=== PATIENT | female | born 2000 | race Caucasian/White ===

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

== ENCOUNTER 2020-09-14 15:59 | Emergency (ER) | payer SELFPAY ==
[2018-07-18 19:44] VITALS: BMI 42.2
[2020-09-14 15:59] VITALS: BP 154/88; PULSE 89; RESP 17; TEMP 36.9; O2SAT 96; BMI 44.2
[2020-09-14 16:02] VITALS: BP 154/88
[2020-09-14 17:08] LABS: Bacteria 0 SEEN /hpf (None Seen); Mucous, Urine 0 SEEN /hpf (<or=2+); Squamous Epithelial Cells - UA 0 SEEN /hpf (5-10); White Blood Cells 0 SEEN /hpf (0-5)
[2020-09-14 17:19] LABS: Color, Urine Yellow (Yellow); Glucose, Dipstick Normal (Normal); Ketone-Dipstick Negative (Negative); Leukocyte Esterase-Dipstick Negative /ul (Negative); Nitrite-Dipstick Negative (Negative); Occult Blood-Urine 250 /ul (Negative); Protein-Dipstick Negative (Negative); Urine Bilirubin Dipstick Negative (Negative); Urine Clarity Clear (Clear); Urine Urobilinogen 1 mg/dl (Normal)
[2020-09-14 17:32] LABS: Red Blood Cells-Urine 5-10 SEEN /hpf (0-5)
[2020-09-14 17:33] LABS: Internal QC Validated? YES +Cl - CLEAR BKGD; Pregnancy, Urine Negative Negative
--- NOTE | 2020-09-14 17:58 | ED.VIS.GEN ---
History of Present Illness Chief Complaint: Vag Bleeding Informant: Patient Onset: Today Narrative: 20-year-old female with no significant past medical history presenting with heavy vaginal bleeding. Patient started her menstrual period yesterday. She states it was normal and then today she developed heavy vaginal bleeding. Patient states he has been bleeding through tampon an hour all day. She denies any lightheadedness. She denies any abnormal abdominal pain. She does have associate pelvic cramping and some mild nausea associated with the pain. She denies any abnormal vaginal discharge. She is not concerned for STDs. She states she is actively trying to conceive. She notes she had an IUD removed a couple months ago and initially had 1 month of bleeding. She states that she was instructed to come in by her HEDGE TRIMMER. No other complaints at this time. Past Medical History - Allergies and Home Meds Allergies/Adverse Reactions: Allergies No Known Allergies Allergy (Verified 09/14/20 15:59) Primary Care Physician: Berenice Mg MD [Primary Care Provider] - Kay Mancilla MD [STAFF PHYSICIAN] - Past Medical History: None Surgical History: noncontributory Lives: Spouse/ Significant Other Smoking Status: Current every day smoker Review of Systems General: Denies: Chills, Fever, Sweats Eyes: Denies: Visual changes - bilaterally, Diplopia ENT: Denies: Rhinorrhea, Sore throat Cardiovascular: Denies: Chest pain, Palpitations Respiratory: Denies: Dyspnea, Cough, Dyspnea on exertion Gastrointestinal: Denies: Abdominal pain, Nausea, Vomiting, Diarrhea, Melena, Hematochezia Genitourinary: Reports: - - Abnormal vaginal bleeding. Denies: Dysuria, Hematuria, Frequency Musculoskeletal: Denies: Back pain, Extremity Pain Skin: Denies: Rash, Wounds Neurological: Denies: Headache, Weakness, Numbness Physical Exam Vital Signs/Narrative: Vital Signs Temp Pulse Resp BP Pulse Ox 09/14/20 16:02 154/88 H 09/14/20 15:59 98.4 F 89 17 154/88 H 96 Inital Vital Signs reviewed: Yes General: Well nourished, Well developed, Obese, No Acute Distress Head: Normocephalic, Atraumatic Eyes: Perrl, EOMI ENT: Moist mucous membranes, No rhinorrhea Neck: Supple, Nontender Cardiovascular: Regular rate, Regular rhythm, No murmurs Respiratory: No distress, CTA bilaterally, Chest nontender Abdomen: Soft, Nontender, Nondistended, Normal bowel sounds. Negative for: Guarding, Rebound tenderness : - - External genitalia. Small amount of blood noted in the vaginal canal. Difficult to completely visualize the os but it appears normal. No cervical motion tenderness. No adnexal tenderness. No abnormal discharge appreciated. Back: Nontender, Normal Inspection. Negative for: CVA tenderness Extremities: Nontender, No edema Skin: Normal color, No rash Neurological: Alert, Oriented x3, Cranial nerves II-XII grossly intact, Normal Strength, Normal Sensation Psychological: Normal affect, Normal Mood Diagnostic/Tx/Re-eval Laboratory Data 09/14/20 16:45 Urine Color Yellow Urine Clarity Clear Urine pH 6.0 Ur Specific [place] 1.020 Urine Protein Negative Urine Glucose (UA) Normal Urine Ketones Negative Urine Occult Blood 250 H Urine Nitrite Negative Urine Bilirubin Negative Urine Urobilinogen 1 H Ur Leukocyte Esterase Negative Urine RBC 5-10 SEEN Urine WBC 0 SEEN Ur Squamous Epith Cells 0 SEEN Urine Bacteria 0 SEEN Urine Mucus 0 SEEN Urine Test Negative - Medical Decision Making Patient evaluated for heavy vaginal bleeding. On pelvic exam she does not have that heavy of bleeding. She is hemodynamically stable. I do not think a CBC is indicated at this time. She is not on any anticoagulation. She recently had her Mirena removed which is likely why she is having abnormal bleeding. Urinalysis is normal. Urine is negative. I did touch base with her HEDGE TRIMMER on-call, Dr. Mancilla, who had no further recommendations besides NSAID therapy and to follow-up outpatient. Patient is counseled on signs and symptoms requiring return to the emergency room. Patient verbalizes agreement and understand this plan. Patient discharged home in stable and improved condition. ED Disposition - Plan for ED Patient: Disposition: Home or Assisted Living Diagnosis: Episode of heavy vaginal bleeding Instructions: ED Dysfunctional Uterine Bleeding Referrals: Berenice Mg MD [Primary Care Provider] - Kay Mancilla MD [STAFF PHYSICIAN] - Additional Instructions: Alternate Tylenol and ibuprofen for pain. Follow-up with HEDGE TRIMMER.
[2020-09-14 18:06] VITALS: PULSE 80; O2SAT 98
== END 2020-09-14 18:06 | disposition home or self-care (01) ==
PROVIDERS: Emergency Provider Emergency Medicine; PCP Pediatrics
DX: N93.9 Abnormal uterine and vaginal bleeding, unspecified (principal); F17.200 Nicotine dependence, unspecified, uncomplicated; E66.9 Obesity, unspecified
CPT/HCPCS: 81001; 81025; 99282

== ENCOUNTER 2020-12-23 10:02 | Emergency (ER) | payer SELFPAY ==
[2020-12-23 10:04] VITALS: BP 162/96; PULSE 99; RESP 16; TEMP 36.6; O2SAT 97; BMI 47.8
--- NOTE | 2020-12-23 10:44 | EX.ED.DYSGE1 ---
HPI History of Present Illness Chief Complaint: Cold Sx Informant: patient Narrative Narrative: Patient is evaluated for 1 week of upper respiratory symptoms. She has had associated stuffy nose, headache, cough, sneezing and chest tightness. States she has pain when she coughs. She feels very fatigued all week. She denies associated fever or ear pain but does have ear pressure. Patient's been taking multiple [id number] medications including Mucinex and Meghann-Cumming. Patient notes that she is . Her last menstrual period was September 12. She deposit test on October 15. She has been having some new nausea, vomiting and abdominal pain this week. She denies any vaginal bleeding. She has had urinary frequency. She denies any dysuria. She does state the vomiting is associated with coughing. Patient had a hard time establishing with an RESIDENTIAL BUILDING INSPECTOR because she does not have insurance. This is her first . She is not had any ultrasound to confirm intrauterine . She does this week she has been having pain in her bellybutton region every day. Patient had a negative Covid test today. Her significant other recently had bronchitis and similar symptoms. Patient denies associated fever. PFSH PFS Home Medications PNV cmb#95-ferrous fumarate-FA 1 each PO DAILY 09/14/20 [History Last Taken Unknown] Allergy/AdvReac Type Severity Reaction Status Date / Time No Known Allergies Allergy Verified 12/23/20 10:03 Social History Smoking Status: Current every day smoker tobacco type: cigarettes ROS ROS ED Constitutional Constitutional ED: Denies chills, fever(s) or sweats Eyes Eyes: Denies change in vision ENT ENT ED: Reports ear pain bilateral (Fullness), rhinorrhea and sore throat Cardiovascular Cardiovascular: Denies chest pain Respiratory/Chest Respiratory/Chest: Reports cough; Denies dyspnea Gastrointestinal Gastrointestinal: Reports abdominal pain, nausea and vomiting Genitourinary Genitourinary ED: Reports urinary frequency; Denies dysuria Musculoskeletal Musculoskeletal: Denies arthralgias or myalgias Integumentary Denies rash Neurologic Neurologic: Reports headache(s); Denies paresthesias or weakness Psychiatric Psychiatric: Denies anxiety or depression EXAM Physical Exam Const Vital Signs: 12/23/20 10:04 12/23/20 10:29 Temperature 97.9 F Temperature Source Temporal Pulse Rate 99 Respiratory Rate 16 Respiratory Effort Normal Non-Labored Respiratory Depth Normal Respiratory Pattern Normal Blood Pressure 162/96 H Blood Pressure Mean 162/96 Pulse Ox 97 Oxygen Delivery Method Room Air Positive well nourished and well developed General Appearance ED: well developed HEENT Reports TM's clear and moist mucous membranes Tympanic Membrane ED: Yes TM's clear Eyes PERRL and EOMs intact bilaterally Neck no lymphadenopathy and supple Chest Wall inspection of chest normal Resp normal respiratory effort and clear to auscultation bilaterally Auscultation: Negative for rales or wheezes Cardio regular rate, regular rhythm and no murmurs GI normal to inspection, nondistended, normoactive bowel sounds Back/Spine no CVA tenderness Extremity normal to inspection Neuro oriented x3 Sensorium / Orientation: alert Psych mental status grossly normal MDM MDM MDM Narrative Medical decision making narrative: Patient is evaluated for 1 week of respiratory viral symptoms as well as abdominal discomfort and early . She appears nontoxic in no acute distress. She states she is intermittent discomfort around her bellybutton in the evenings and has not had a period for the past 2 months. Had a positive home test. She is not followed up with OB yet she has been having trouble getting in. She had negative Covid test earlier today. Her clinical presentation is most consistent with viral syndrome/common cold. Her breath sounds are clear. Her vital signs are normal I do not think a chest x-ray is indicated at this time. Given that she is previously not been evaluated for I did obtain a serum quant as well as initially performed a bedside ultrasound. I was unable to visualize intrauterine gestation still formal ultrasound was ordered. Her serum quant actually came back as 0. Urinalysis does not show any signs of infection and was normal. Patient counseled that at this time it does not appear that she is . Possible she had a false positive on her home test. She is instructed to follow-up with gynecology for her abnormal menses. She is counseled on symptomatic treatment for her viral syndrome. Patient is counseled on signs and symptoms requiring return to the emergency room. Patient verbalizes agreement and understand this plan. Patient discharged home in stable and improved condition. Lab Data Attestation: I reviewed the patient's lab results. Labs: Laboratory Results - last 24 hr 12/23/20 12/23/20 10:48 11:08 Serum , Qual NEGATIVE Urine Color Straw Urine Clarity Clear Urine pH 7.0 Ur Specific [place] 1.005 Urine Protein Negative Urine Glucose (UA) Normal Urine Ketones Negative Urine Occult Blood Negative Urine Nitrite Negative Urine Bilirubin Negative Urine Urobilinogen Normal Ur Leukocyte Esterase Negative Urine RBC 0 SEEN Urine WBC 0 SEEN Ur Squamous Epith Cells 0-5 SEEN Urine Bacteria 0 SEEN Urine Mucus 0 SEEN Discharge Plan Triage Chief Complaint: Cold Sx ED Provider: Ca Dumont Dx/Rx/DC Orders Clinical Impression: Acute viral syndrome, Abnormal menses Instructions: ED URI, Viral, No Abx (Adult) Prescriptions: No Action PNV cmb#95-ferrous fumarate-FA 1 EACH tablet 1 each PO DAILY RF: 0 Primary Care Provider: Care Physician,No Primary Referrals: Jing Cross MD [STAFF PHYSICIAN] - Kait José MD [STAFF PHYSICIAN] - Care Physician,No Primary [Primary Care Provider] - Activity Restrictions/Additional Instructions: Continue take [id number] medications for your symptoms. This is viral and should resolve in the next 2 weeks. Use medications of decongestants in it. Your test for blood work was negative. Please follow-up with RESIDENTIAL BUILDING INSPECTOR for further evaluation of your irregular periods. Disposition Disposition: Home, Self Care Discharge Date/Time: 12/23/20 11:48
[2020-12-23 11:02] LABS: Internal QC Validated? YES +Cl - CLEAR BKGD; Pregnancy, Serum, hCG Quali. NEGATIVE Negative
[2020-12-23 11:12] LABS: Bacteria 0 SEEN /hpf (None Seen); Mucous, Urine 0 SEEN /hpf (<or=2+); Red Blood Cells-Urine 0 SEEN /hpf (0-5); White Blood Cells 0 SEEN /hpf (0-5)
[2020-12-23 11:15] LABS: Color, Urine Straw (Yellow); Glucose, Dipstick Normal (Normal); Ketone-Dipstick Negative (Negative); Leukocyte Esterase-Dipstick Negative /ul (Negative); Nitrite-Dipstick Negative (Negative); Occult Blood-Urine Negative /ul (Negative); Protein-Dipstick Negative (Negative); Specific Gravity, Urine 1.005 (1.002-1.030); Urine Bilirubin Dipstick Negative (Negative); Urine Clarity Clear (Clear); Urine Urobilinogen Normal (Normal)
[2020-12-23 11:24] LABS: Squamous Epithelial Cells - UA 0-5 SEEN /hpf (5-10)
== END 2020-12-23 11:48 | disposition home or self-care (01) ==
PROVIDERS: Emergency Provider Emergency Medicine
DX: B34.9 Viral infection, unspecified (principal); F17.210 Nicotine dependence, cigarettes, uncomplicated
CPT/HCPCS: 36415; 81001; 84703; 99282

== ENCOUNTER 2021-02-06 19:05 | Emergency (ER) | payer SELFPAY ==
[2021-02-06 19:05] VITALS: BP 132/86; PULSE 102; RESP 18; TEMP 36.9; O2SAT 100; BMI 48.6
--- NOTE | 2021-02-06 20:40 | ED.RN ---
THERE ARE A LOT OF SICK PEOPLE HERE. I THINK I WILL GO AND GET THIS CHECKED LATER
== END 2021-02-06 20:36 | disposition left against medical advice (07) ==
LOC: ED 20:55
DX: Z53.21 Procedure and treatment not carried out due to patient leaving prior to being seen by health care provider (principal)

== ENCOUNTER 2021-02-08 19:13 | Emergency (ER) | payer BC, SELFPAY ==
[2021-02-08 19:13] VITALS: BP 153/89; PULSE 88; RESP 18; TEMP 36.4; O2SAT 100; BMI 46.3
--- NOTE | 2021-02-08 19:55 | ED.RN ---
PT COMPLAINS OF TIGHTNESS IN CHEST, REPORTS THAT HER THROAT FEELS CLEAR. SHE DENIES DIFFICULTY TAKING BREATHS. SPOKE WITH DR. DOMINGUEZ, AWARE OF PT, HE DENIES NEED FOR PT TO COME EMERGENTLY BACK. WILL CONTINUE TO MONITOR IN WAITING ROOM. FREQUENT CHECKS MADE ON PT, WHEN ASKED SHE STATES SHE IS DOING OKAY.
--- NOTE | 2021-02-08 22:12 | EDS_ITS ---
HPI History of Present Illness Chief Complaint: Allergic Reaction Informant: patient Onset/Context/Timing Onset: Hours Context: Sudden Onset Timing: Continuous Quality: Left-sided facial swelling and pain Location: Left maxillary region Current Severity: Mild Maximum Severity: Moderate Worsened by: Presumed allergic reaction to amoxicillin Relieved by: Nothing Associated Symptoms Associated Symptoms: None Narrative Narrative: Patient is a 20-year-old female who presents because of facial swelling. She sent a picture to her mom. Mother was concerned she is allergic amoxicillin. She is on amoxicillin because of dental abscess. She is also on hydrocodone. She denies itching or rash. She denies dysphonia or dysphagia. She denies shortness of breath presently. She states she was slightly anxious when she came in and complained of shortness of breath. She denied vomiting or diarrhea. She denies orthostatic symptoms. She lists amoxicillin as causing tightness. Patient was told that she did not have an allergic reaction to amoxicillin and this should be removed. Prior similar symptoms: No Recent Illness/Hospitalization: Yes [facility] Home Medications NK 02/08/21 [History Last Taken Unknown] Allergy/AdvReac Type Severity Reaction Status Date / Time amoxicillin Allergy Chest Verified 02/08/21 19:57 tightness Social History (Updated 02/08/21 @ 22:[address] Caleb Delarosa MD) household members: significant other Smoking Status: Current every day smoker tobacco type: cigarettes alcohol intake: current alcohol intake frequency: other substance use type: does not use ROS ROS ED Constitutional Constitutional ED: Denies chills, fever(s), subjective or sweats Eyes Eyes: Denies blurry vision, change in vision or other ENT ENT ED: Denies ear pain, rhinorrhea or sore throat Cardiovascular Cardiovascular: Denies chest pain, palpitations or racing heartbeat Respiratory/Chest Respiratory/Chest: Reports dyspnea; Denies cough, dyspnea on exertion or sputum Gastrointestinal Gastrointestinal: Reports nausea; Denies abdominal pain, diarrhea or vomiting Musculoskeletal Musculoskeletal: Denies arthralgias, back pain, myalgias or neck pain Integumentary Denies Abrasions or rash Neurologic Neurologic: Denies headache(s) or weakness Allergic/Immunologic Allergic/Immunologic ED: Reports other Details: Left-sided facial swelling due to dental abscess tooth #9 or 10 ; Denies mouth swelling, tongue swelling or urticaria EXAM Physical Exam Const Vital Signs: 02/08/21 19:13 Temperature 97.5 F L Temperature Source Temporal Pulse Rate 88 Respiratory Rate 18 Blood Pressure 153/89 H Blood Pressure Mean 110 Pulse Ox 100 Positive well nourished, well developed and obese General Appearance ED: well developed and NAD Nutritional Appearance: obese HEENT Reports TM's clear and moist mucous membranes HEENT Narrative: Uvula midline. She does have a swelling of left side of face due to dental abscess. There is tenderness of tooth 9 and 10. There is no evidence of periodontal abscess. She probably has an apical abscess. There is no trismus. There is no facial cellulitis. Tympanic Membrane ED: Yes TM's clear Eyes PERRL and EOMs intact bilaterally General Eye ED: Negative for pale conjunctiva or scleral icterus Neck no lymphadenopathy, supple and no JVD Neck Narrative: Trachea is midline. There is no in-store expiratory stridor. Chest Wall inspection of chest normal Resp normal respiratory effort and clear to auscultation bilaterally Cardio regular rate, regular rhythm, S1 normal heart sound, S2 normal heart sound and no murmurs GI normal to inspection, nondistended, normoactive bowel sounds and non-tender Palpation: soft Neuro oriented x3, CN's II-XII intact bilaterally and no sensory deficits noted Sensorium / Orientation: alert Motor Exam: strength 5/5 throughout Psych mental status grossly normal Skin no rashes or lesions noted and no wounds MDM MDM MDM Narrative Medical decision making narrative: Patient has facial swelling due to dental abscess. She was informed she does not have allergy to amoxicillin. She was instructed to continue taking the amoxicillin. Patient would like to be vaccinated for the Covid virus. Order was placed. Discharge Plan Triage Chief Complaint: Allergic Reaction ED Provider: Caleb Delarosa Dx/Rx/DC Orders Clinical Impression: Abscess, dental Instructions: ED Dental Abscess, Viral Vector COVID-19 Vaccine Prescriptions: No Action NK RF: 0 Primary Care Provider: Care Physician,No Primary Referrals: Ursula Cee MD [STAFF PHYSICIAN] - As Needed Care Physician,No Primary [Primary Care Provider] - Activity Restrictions/Additional Instructions: Keep follow-up appointment with dentist Disposition Disposition: Home, Self Care
[2021-02-08] MEDS: COVID-19 VAC,AD26(JANSSEN)/PF 0.5 ML SYRINGE IM (22:33)
[2021-02-08 22:52] VITALS: BP 114/68; PULSE 72; RESP 15; O2SAT 98
== END 2021-02-08 22:52 | disposition home or self-care (01) ==
PROVIDERS: Emergency Provider Emergency Medicine
DX: K04.7 Periapical abscess without sinus (principal); F17.210 Nicotine dependence, cigarettes, uncomplicated
CPT/HCPCS: 91303; 99282

== ENCOUNTER 2022-03-06 01:25 | Emergency (ER) | payer BC, MEDICAID, SELFPAY ==
[2022-03-06 01:27] VITALS: BP 146/90; PULSE 80; RESP 16; TEMP 36.2; O2SAT 98; BMI 49.4
[2022-03-06 01:30] VITALS: O2SAT 98
--- NOTE | 2022-03-06 02:08 | EDS_ITS ---
HPI History of Present Illness Chief Complaint: Shortness of Breath Informant: patient Onset/Context/Timing Onset: Today Context: sudden Timing: Continuous Quality: Positive for Dyspnea on exertion Worsened by: Exertion Relieved by: Nothing Associated Symptoms cough, rhinorrhea, sore throat, subjective and chills; Negative for post nasal drip, ear pain, fever or sweats Chest Pain: Positive for Sharp (Right sided) Narrative Narrative: Patient presents with shortness of breath that became worse today. Patient states it got worse suddenly today. Patient states she has been feeling ill for the past couple days. Patient states her breathing is worse with exertion. Patient states nothing makes it better. Patient admits to a cough with some sputum production. Patient also admits to some sore throat and rhinorrhea. Patient admits to some subjective chills and pain in the right side of her chest. Patient describes this as sharp. Patient states she took a home COVID test today which was positive. PFSH PFSH Medical History no medical history no medical history Home Medications albuterol sulfate 90 mcg/actuation aerosol inhaler (Ventolin HFA) 1 - 2 puff inhalation Q4H PRN PRN Wheezing ##1 03/06/22 [Rx Last Taken Unknown] aripiprazole 10 mg tablet 10 mg PO DAILY 03/06/22 [History Last Taken Unknown] hydroxyzine HCl 50 mg tablet 50 mg PO QHS 03/06/22 [History Last Taken Unknown] metformin 500 mg tablet 500 mg PO BID 03/06/22 [History Last Taken Unknown] nirmatrelvir 300 mg (150 mg x2)-ritonavir 100 mg tablet,dose pack(EUA) (Paxlovid) See Rx Instructions PO .COMPLEX #30 tabs 03/06/22 [Rx Last Taken Unknown] omeprazole 20 mg capsule,delayed release 20 mg PO DAILY 03/06/22 [History Last Taken Unknown] propranolol 20 mg tablet 20 mg PO TID 03/06/22 [History Last Taken Unknown] Allergy/AdvReac Type Severity Reaction Status Date / Time No Known Allergies Allergy Verified 03/06/22 01:27 Surgical History (Updated 03/06/22 @ 02:[address] Chito Caban DO) Hx of tonsillectomy Social History household members: significant other Smoking Status: Current every day smoker tobacco type: cigarettes alcohol intake: current alcohol intake frequency: other substance use type: does not use ROS ROS ED Constitutional Constitutional ED: Reports chills; Denies fever(s) Eyes Eyes: Denies blurry vision or change in vision ENT ENT ED: Reports rhinorrhea and sore throat Cardiovascular Cardiovascular: Reports chest pain; Denies palpitations Respiratory/Chest Respiratory/Chest: Reports cough and dyspnea Gastrointestinal Gastrointestinal: Reports nausea; Denies vomiting Genitourinary Genitourinary ED: Denies dysuria or hematuria Musculoskeletal Musculoskeletal: Reports back pain and neck pain Integumentary Denies abscess or rash Neurologic Neurologic: Reports headache(s); Denies weakness Allergic/Immunologic Allergic/Immunologic ED: Denies mouth swelling or urticaria EXAM Physical Exam Const Vital Signs: 03/06/22 01:27 03/06/22 01:30 03/06/22 02:33 Temperature 97.1 F L Temperature Source Temporal Pulse Rate 80 76 Respiratory Rate 16 18 Respiratory Effort Normal Non-Labored Respiratory Depth Normal Respiratory Pattern Normal Blood Pressure 146/90 H Blood Pressure Mean 108 Pulse Ox 98 Oxygen Delivery Method Room Air Room Air Positive well nourished, well developed and obese General Appearance ED: well developed and NAD Nutritional Appearance: obese HEENT normocephalic and atraumatic Eyes PERRL and EOMs intact bilaterally Neck supple and no JVD Chest Wall palpation of chest normal Resp normal respiratory effort Effort and Inspection: Negative for respiratory distress Auscultation: diminished lung sounds diffuse Cardio regular rate, regular rhythm and no murmurs GI normal to inspection, nondistended, normoactive bowel sounds, soft to palpation, non-tender and non-distended Extremity normal to inspection General Extremety ED: Negative for edema or tenderness General Extremity: Negative for edema Neuro oriented x3, CN's II-XII intact bilaterally and no sensory deficits noted Sensorium / Orientation: awake and alert Motor Exam: strength 5/5 throughout Psych mental status grossly normal MDM MDM MDM Narrative Medical decision making narrative: Patient was given a DuoNeb aerosol here. CBC was within normal limits. Comprehensive metabolic profile was within normal limits. Portable 1 view chest x-ray was obtained. On my interpretation, lung barnhart are clear. There is normal cardiac silhouette. Bony thorax is normal. There is no acute process noted. Radiologist also interpreted the x-ray and agrees. Patient was advised of her findings. Patient is feeling better on reevaluation. Patient was given a prescription for an albuterol inhaler. Patient was also given a prescription for Paxlovid. Patient was instructed to continue Tylenol and ibuprofen as needed for any fevers or aches. Patient was instructed to follow-up with her primary care physician in 5 to 7 days. Patient understood and was agreeable with the plan. All questions were answered. Lab Data Attestation: I reviewed the patient's lab results. Labs: Laboratory Results - last 24 hr 03/06/22 03/06/22 03:00 03:00 WBC 6.8 RBC 5.12 Hgb 16.0 H Hct 46.7 MCV 91.2 MCH 31.3 MCHC 34.3 RDW Std Deviation 40.2 RDW Coeff of Abril 11.9 Plt Count 340 MPV 10.3 Immature Gran % (Auto) 0.300 Neut % (Auto) 46.0 L Lymph % (Auto) 39.8 [place] % (Auto) 7.6 Eos % (Auto) 5.7 H Baso % (Auto) 0.6 Absolute Neuts (auto) 3.2 Absolute Lymphs (auto) 2.72 Nucleated RBC % 0 Sodium 141 Potassium 3.8 Chloride 106 Carbon Dioxide 27.0 Anion Gap 8 BUN 10 Creatinine 0.72 Estim Creat Clear Calc 110.28 Est GFR (MDRD) Af Amer 130 Est GFR (MDRD) Non-Af 107 BUN/Creatinine Ratio 13.9 Glucose 102 Calcium 9.1 Total Bilirubin 0.10 L AST 54 H ALT 83 H Alkaline Phosphatase 62 Total Protein 7.7 Albumin 3.5 Globulin 4.2 Albumin/Globulin Ratio 0.8 L Radiography Chest X-Ray - ED: 1 View, Read by ED Physician, Read by Radiologist and No Acute Disease Diagnostic Testing: Clinical Impression(s) from Imaging Studies Chest X-Ray 03/06/22 02:25 IMPRESSION: No radiographic evidence of acute cardiopulmonary disease. Electronically Signed: Emanuel Bean MD at 2:39 EDT , Discharge Plan Triage Chief Complaint: Shortness of Breath ED Provider: Chito Caban Dx/Rx/DC Orders Clinical Impression: COVID-19, Morbid obesity Instructions: Coronavirus Disease 2019 (COVID-19): Caring for Yourself or Others Prescriptions: New albuterol sulfate [Ventolin HFA] 90 mcg/actuation HFA aerosol inhaler 1 - 2 puff inhalation Q4H PRN PRN (Reason: Wheezing) Qty: 1 0RF Paxlovid (EUA) 300 mg (150 mg x 2)-100 mg tablets,dose pack See Rx Instructions .ROUTE .COMPLEX Qty: 30 0RF Rx Instructions: take TWO 150 mg tablets of nirmatrelvir with ONE 100 mg tablet of ritonavir twice daily for 5 days No Action metformin 500 mg tablet 500 mg PO BID Label Comments: take 1 tablet by mouth twice a day with meals hydroxyzine HCl 50 mg tablet 50 mg PO QHS Label Comments: take 1 tablet by mouth at bedtime omeprazole 20 mg capsule,delayed release(DR/EC) 20 mg PO DAILY propranolol 20 mg tablet 20 mg PO TID Label Comments: take 1 tablet by mouth three times a day aripiprazole 10 mg tablet 10 mg PO DAILY Label Comments: Take 1 tablet by mouth once daily. Primary Care Provider: Mary Snowden NP Referrals: Mary Snowden NP, [employer] WORK[employer]PER[facility] [Primary Care Provider] - 5-7 Days Disposition Disposition: Home, Self Care Discharge Date/Time: 03/06/22 03:40
--- NOTE | 2022-03-06 02:25 | RAD_ITS ---
EXAM: XR CHEST, 1 VIEW CLINICAL INDICATION: Cough TECHNIQUE: Frontal view of the chest. This report was created using [employer] report generation technology. COMPARISON: None. FINDINGS: LUNGS AND PLEURAL SPACES: Unremarkable. No consolidation or edema. No pneumothorax. No effusion. HEART: Unremarkable. Cardiac silhouette not enlarged. MEDIASTINUM: Central airways and mediastinal contour are unremarkable. BONES/JOINTS: Unremarkable. SOFT TISSUES: Unremarkable. RAD/Chest 1 View (Portable) IMPRESSION: No radiographic evidence of acute cardiopulmonary disease. Electronically Signed: Emanuel Bean MD at 2:39 EDT ,
[2022-03-06] MEDS: Ipratropium/Albuterol Sulfate 3 ML AMPUL.NEB INHALATION (02:32)
[2022-03-06 02:33] VITALS: PULSE 76; RESP 18
[2022-03-06 03:08] LABS: Absolute Lymphocyte Count 2.72 X10^3/uL (0.83-4.51); Absolute Neutrophil Count 3.2 X10^3/uL (2.0-7.7); Basophil# 0.04 X10^3/uL; Basophil% 0.6 % (0-1); Eosinophil# 0.39 X10^3/uL; Eosinophils% 5.7 % (0-5); Hematocrit 46.7 % (37-47); Lymphocyte # 2.72 X10^3/ul (0.83-4.51); Lymphocyte % 39.8 % (19-41); Mean Corp Hgb Conc 34.3 g/dL (32-36); Mean Corpuscular Hgb 31.3 pg (27.0-32.0); Mean Corpuscular Volume 91.2 fL (81-99); Mean Platelet Vol. 10.3 fl (6.2-12.0); Monocyte# 0.52 X10^3/uL; Monocyte% 7.6 % (0-10); NRBC Flagged by Analyzer 0 % (0-5); Neutrophil # 3.15 X10^3/uL (2.7-7.7); Platelet Count 340 K/mm3 (150-450); RBC Distribution Width CV 11.9 % (11.6-14.6); RBC Distribution Width SD 40.2 fl (35.1-43.9); Red Blood Count 5.12 M/mm3 (4.2-5.4); White Blood Count 6.8 K/mm3 (4.4-11.0)
[2022-03-06 03:27] LABS: ALB/GLOB Ratio 0.8 RATIO (0.9-2.4); AST(SGOT) 54 U/L (15-37); Alanine Aminotransfer ALT/SGPT 83 U/L (13-56); Albumin, Serum 3.5 g/dL (3.2-5.0); Alkaline Phosphatase 62 U/L (45-117); Anion Gap 8 (5-15); BUN 10 mg/dL (7-18); BUN/Creat Ratio 13.9 RATIO (10-20); Calcium,Total 9.1 mg/dL (8.5-10.1); Chloride 106 mmol/L (98-107); Creatinine, Serum 0.72 mg/dL (0.55-1.02); EST Glomerular Filtration Rate 107 mL/min (>60); Est Glom Filt Rate - Afr Amer 130 mL/min (>60); Estimated Creatinine Clearance 110.28 ml/min; Globulin 4.2 g/dL (2.2-4.2); Glucose 102 mg/dL (74-106); Potassium 3.8 mmol/L (3.5-5.1); Protein, Total 7.7 g/dL (6.4-8.2); Sodium Level 141 mmol/L (136-145)
== END 2022-03-06 03:40 | disposition home or self-care (01) ==
PROVIDERS: Emergency Provider Emergency Medicine; PCP Registered Nurse; Visit Provider Emergency Medicine
DX: U07.1 COVID-19 (principal); E66.01 Morbid (severe) obesity due to excess calories; F17.210 Nicotine dependence, cigarettes, uncomplicated; Z79.899 Other long term (current) drug therapy; Z79.84 Long term (current) use of oral hypoglycemic drugs
CPT/HCPCS: 71045; 80053; 85025; 94640; 99282; A4216